=== PATIENT | female | born 1990 | race Caucasian/White ===

== ENCOUNTER → 2017-02-19 | Outpatient (CLI) | payer BC ==
--- NOTE | 2017-02-19 10:31 | RAD ---
Indication injury 2 days previously. Thumb pain. An AP view of the right hand was obtained as well as targeted AP and lateral views of the thumb. No bony abnormality is seen
== END | disposition home or self-care (01) ==
LOC: DXRADRC 10:14
PROVIDERS: ATTEND Physician Assistant Medical
DX: M79.644 Pain in right finger(s) (principal); X58.XXXD Exposure to other specified factors, subsequent encounter
CPT/HCPCS: 73140

== ENCOUNTER → 2018-01-18 | Outpatient (CLI) | payer BC ==
--- NOTE | 2018-01-18 16:56 | RAD ---
Left hip, 2 views, 01/18/2018: History: Hip pain No fracture or dislocation is identified. The hip joint space is well-preserved. The periarticular soft tissues are unremarkable. IMPRESSION: No significant left hip abnormality is detected. Lumbar spine, 5 views, 01/18/2018: History: Back pain The lumbar vertebral heights are well-maintained. The intervertebral disc spaces are well preserved. No fracture or dislocation is identified. There is no evidence of spondylolysis. An IUD is projected over the mid pelvis. IMPRESSION: No significant lumbar spine abnormality is detected.
== END | disposition home or self-care (01) ==
LOC: PMG 15:36
PROVIDERS: ATTEND Physician Assistant Medical
DX: M25.552 Pain in left hip (principal); M54.5 Low back pain
CPT/HCPCS: 72110; 73502

== ENCOUNTER 2021-03-22 13:23 | Emergency (ER) | payer BC ==
[~2021-03-22] VITALS: Ht 162.6 cm; Wt 61.1 kg
--- NOTE | 2021-03-22 13:47 | PHYS DOC ---
General Adult EDM: Chief Complaint: ABSCESS HPI: HPI: 31-year-old female presents with abscess of the right upper leg. The patient saw her primary care physician who placed her on Bactrim. She is 5 days into the Bactrim but the wound has gotten bigger and more tender. It is an obvious abscess and she assumes it needs to be drained. She denies fever or chills. She has no other complaints at this time. Review of Systems: Review of Systems: Constitutional: Denies fever or chills Eyes: Denies change in visual acuity HENT: Denies nasal congestion or sore throat Respiratory: Denies cough or shortness of breath Cardiovascular: Denies chest pain or edema GI: Denies abdominal pain, nausea, vomiting, bloody stools or diarrhea : Denies dysuria Musculoskeletal: Denies back pain or joint pain Integument: Abscess Neurologic: Denies headache, focal weakness or sensory changes Endocrine: Denies polyuria or polydipsia Lymphatic: Denies swollen glands Psychiatric: Denies depression or anxiety Allergies: Allergies: Allergies Coded Allergies Type Severity Reaction Last Updated Verified No Known Drug Allergies 03/22/21 No Physical Exam: PE: Constitutional: Well developed, well nourished, no acute distress, non-toxic appearance. [] HENT: Normocephalic, atraumatic, bilateral external ears normal, oropharynx moist, no oral exudates, nose normal. [] Eyes: PERRLA, EOMI, conjunctiva normal, no discharge. [] Neck: Normal range of motion, no tenderness, supple, no stridor. [] Cardiovascular:Heart rate regular rhythm, no murmur [] Lungs & Thorax: Bilateral breath sounds clear to auscultation [] Abdomen: Bowel sounds normal, soft, no tenderness, no masses, no pulsatile masses. [] Skin: Warm, dry, no erythema, no rash. [] Back: No tenderness, no CVA tenderness. [] Extremities: No tenderness, no cyanosis, no clubbing, ROM intact, no edema. [] Neurologic: Alert and oriented X 3, normal motor function, normal sensory function, no focal deficits noted. [] Psychologic: Affect normal, judgement normal, mood normal. [] EKG: EKG: [] Radiology/Procedures: Radiology/Procedures: [] Heart Score: C/O Chest Pain: N/A Risk Factors: Risk Factors: DM, Current or recent (<one month) smoker, HTN, HLP, family history of CAD, obesity. Risk Scores: Score 0 - 3: 2.5% MACE over next 6 weeks - Discharge Home Score 4 - 6: 20.3% MACE over next 6 weeks - Admit for Clinical Observation Score 7 - 10: 72.7% MACE over next 6 weeks - Early Invasive Strategies Course & Med Decision Making: Course & Med Decision Making Pertinent Labs and Imaging studies reviewed. (See chart for details) The patient had an abscess of the right upper thigh. I performed an I&D. See note below for more details. The patient still has 5 days of antibiotics and I believe this should be sufficient. She is stable for discharge at this time. [] Dragon Disclaimer: Dragon Disclaimer: This electronic medical record was generated, in whole or in part, using a voice recognition dictation system. Incision and Drainage Indication: Abscess of the right upper thigh Procedure: The patient gave me verbal consent for incision and drainage of her right thigh abscess. The area was anesthetized with 2% lidocaine without epinephrine. 2 cc was used. I used a #11 blade to make a 7 mm incision in the abscess. There was purulent material expressed. I broke up loculations with a sterile Q-tip. There was further purulent material expressed. A short 1 inch wide piece of packing was inserted into the wound to facilitate further drainage. A clean dressing with porous tape was placed over the area. Her tetanus is not up-to-date and was updated in the ED. The patient tolerated the procedure as well as can be expected. Complications: None Departure Departure: Impression: Primary Impression: Abscess Disposition: 01 HOME / SELF CARE / HOMELESS Condition: IMPROVED Referrals: ROSHAN CONSTANTINO (PCP) Patient Instructions: Abscess, Care After, Incision and Drainage, Care After Additional Instructions: Continue to take your Bactrim as prescribed. [place] STILL DO Mar 22, 2021 13:47
[2021-03-22 14:21] VITALS: BP 145/99
[2021-03-22] MEDS ORDERED: DIPH,PERTUSS(ACELL),TET VAC/PF 0.5 ML SYRINGE. VAX IM ONE (14:30)
== END 2021-03-22 14:25 | disposition home or self-care (01) ==
LOC: ER 13:23
DX: L02.415 Cutaneous abscess of right lower limb (principal)
CPT/HCPCS: 10060; 99283-25